=== PATIENT | female | born 2000 | race Two or more races ===

== ENCOUNTER 2025-01-25 17:35 | Emergency (ER) | payer OTHER, SELFPAY ==
[2025-01-25 17:58] VITALS: BP 141/83; PULSE 74; RESP 20; TEMP 37.4; O2SAT 97
--- NOTE | 2025-01-25 17:58 | XR_ITS ---
Examination: Pelvic ultrasound, transabdominal, complete Technique: Transabdominal ultrasound of the pelvis performed using grayscale imaging Date and time of exam: January 25, 2025 at 1913 hrs. Indications: Pelvic pain beginning one week ago, worse the last 3 days Findings: Uterus 6.8 cm endometrial stripe 2 mm No uterine mass or intrauterine gestation Multiple right ovarian cysts, arterial flow to the ovary, including 3.0 x 2.2 cm, 2.8 x 2.0 cm Left ovarian cyst 2.8 x 2.4 cm, arterial flow Impression: No uterine mass or intrauterine gestation Small ovarian cysts as above
--- NOTE | 2025-01-25 17:59 | PD.EDRME ---
Rapid Medical Screening Exam [facility] Arrival date/time: 01/25/25 17:35 24-year-old female with no known medical history presents to the emergency room with a chief complaint of right lower quadrant abdominal pain and tenderness. Patient states she missed her period last month but is unsure if she is or not. Patient denies any dysuria hematuria or vaginal bleeding. I have greeted and performed a focused initial assessment of this patient. A comprehensive ED assessment and evaluation of the patient, analysis of all test results, and completion of the medical decision making process will be conducted by additional ED providers. Chief Complaint: Abdominal Pain Vital signs: Vital Signs Temperature 99.4 F 01/25/25 17:58 Pulse Rate 74 01/25/25 17:58 Respiratory Rate 20 01/25/25 17:58 Blood Pressure 141/83 H 01/25/25 17:58 Pulse Oximetry (%) 97 01/25/25 17:58 Oxygen Delivery Method Room Air 01/25/25 17:58 Vital signs reviewed by provider: Yes
[2025-01-25 18:57] LABS: Basophils # (Auto) 0.1 Thou/mm3 (0.0-0.2); Basophils % (Auto) 0 % (0-2.5); Eosinophils # (Auto) 0.1 Thou/mm3 (0.0-0.5); Eosinophils % (Auto) 1 % (0-10); Hematocrit 42.6 % (36.0-46.0); Hemoglobin 13.9 g/dL (12.0-16.0); Immature Granulocytes % (Auto) 1 % (0-0); Immature Granulocytes Auto 0.06 Thou/mm3 (0.00-0.00); Lymphocytes # (Auto) 2.1 Thou/mm3 (1.0-4.8); Lymphocytes % (Auto) 17 % (10-50); Mean Corpuscular HGB Conc 32.6 g/dl (31.0-37.0); Mean Corpuscular Hemoglobin 28.7 pg (25.0-35.0); Mean Corpuscular Volume 88 fL (80-100); Monocytes # (Auto) 0.9 Thou/mm3 (0.0-0.8); Monocytes % (Auto) 7 % (0-12); Neutrophils # (Auto) 9.5 Thou/mm3 (1.8-7.7); Neutrophils % (Auto) 75 % (37-80); Nucleated Red Blood Cell % 0 /100 WBC (0); Platelet Count 296 Thou/mm3 (140-440); RDW Standard Deviation 41.1 fL (36.4-46.3); Red Blood Count 4.85 Miln/mm3 (4.00-5.20); White Blood Count 12.7 Thou/mm3 (3.6-11.0)
[2025-01-25 19:11] LABS: HCG,Qualitative Serum Negative
[2025-01-25 19:16] LABS: Alanine Aminotransferase 34 U/L (10-49); Albumin, Serum 4.8 gm/dL (3.5-5.0); Albumin/Globulin Ratio 1.7 (1.2-2.2); Alkaline Phosphatase 64 U/L (46-116); Anion Gap 10 (7-16); Aspartate Amino Transferase 38 U/L (0-34); BUN/Creatinine Ratio 16 Ratio (12-20); Beta HCG,Quantitative < 1 mIU/mL (<5.0); Blood Urea Nitrogen 11 mg/dL (9-23); Calcium 9.7 mg/dL (8.3-10.6); Calcium (Corrected) 9.7 mg/dL (8.5-10.1); Carbon Dioxide 27.7 mMol/L (20.0-31.0); Chloride 102 mMol/L (98-107); Creatinine (Component) 0.7 mg/dL (0.6-1.3); Globulin 2.9 gm/dL (2.3-3.5); Glucose 94 mg/dL (74-106); Osmolality,Calculated 278 (275-295); Potassium 4.2 mMol/L (3.4-5.1); Sodium 140 mMol/L (136-145); Total Protein 7.7 gm/dL (5.7-8.2); eGFR > 60 See Note
[2025-01-25 19:57] VITALS: BP 167/96; PULSE 73; RESP 18; TEMP 37.1; O2SAT 96
[2025-01-25 20:35] LABS: Collection Type, Urine Clean Catch
[2025-01-25 20:55] LABS: Bacteria,Urine Rare; Bilirubin,Urine Negative (Negative); Blood,Urine Negative (Negative); Clarity,Urine Clear (Clear/Hazy); Color,Urine Lt-Yellow (Lt Yel-Yel); Culture Indicated,Urine Not Indicated; Glucose, Urine Negative (Negative); Ketones,Urine Negative (Negative); Leukocyte Esterase,Urine Negative (Negative); Nitrite,Urine Negative (Negative); PH,Urine 7.5 (5.0-7.0); Protein,Urine Negative (Neg - Trace); RBC,Urine 2 /hpf (0-3); Specific Gravity,Urine 1.019 (1.001-1.035); Squamous Epithelial Cell,Urine 2 /hpf (0-5); Urobilinogen,Urine Negative mg/dL (0.0-1.0); WBC,Urine 1 /hpf (0-5)
--- NOTE | 2025-01-25 21:54 | PD.EDBACK ---
ED Back Injury Pain RME/HPI General Chief Complaint: Abdominal Pain Stated Complaint: LOWER ABD/BACK/R) LEG PAIN X 3-4 DAYS, POSS PREG Time Seen by Provider: 01/25/25 21:52 Arrival date/time: 01/25/25 17:35 24 year old female present to emergency room with c/o of right pelvic pain for 2 weeks. worsen the past 3-4 days. pt report possible being . LOCATION: pelvic SEVERITY: Symptoms are described as being severe with limitations on activities of daily living QUALITY: Symptoms are described as being cramping CONTEXT: The patient is unable to identify any inciting events. DURATION/TIMING: The symptoms started approximately 14 days ago and have been waxing/waning but always present without ever completely resolving. ASSOCIATED SYMPTOMS: The patient is unable to identify any other associated symptoms. MODIFYING FACTORS: The patient is unable to identify any alleviating or aggravating symptoms. PERTINENT ROS: no fevers, no anorexia, no nausea or vomiting, no diarrhea, no ripping or tearing sensations, no syncope or presyncopal symptoms, denies trauma, denies genital pain denies UTI, denies flank/vaginal bleeding/discharge/odor REVIEW OF SYSTEMS: See History of Present Illness - with the exception of those mentioned in the history of present illness, all other systems reviewed and reported as negative GENERAL: In general the patient is awake, interactive, in an emergency department gurney. HEAD/EYES/EARS/NOSE/THROAT: normo-cephalic, atraumatic, mucus membranes are moist, anicteric, palpebral conjunctiva is pink, trachea is midline. CARDIOVASCULAR: regular rate and regular rhythm, no murmurs, heart sounds are not distant, strong pulses in all four extremities that are equal and symmetric bilateral upper and lower extremities, normal capillary refill. CHEST/PULMONARY: normal chest rise and fall, good air movement, clear to auscultation bilaterally, normal inspiratory to expiratory ratios without evidence of respiratory distress. NECK: No midline/Paraspinal tenderness, no step off ROM/Strenght intact No Kernig and bruzinski sign. No trauma ABDOMEN: soft, right pelvic tenderness, no cva tenderness no masses appreciated BACK: normal range of motion without pain. NEUROLOGICAL: cranio-facial features are symmetric, moves all four extremities equally without obvious limitations or weakness. EXTREMITY: no tenderness to palpation over the long bones or large joints of the bilateral upper and lower extremities, no joint swelling, no joint erythema, no signs of trauma, no unilateral leg swelling and no peripheral edema. SKIN: warm, dry, well-perfused, no jaundice, no rash, no telangiectasias or petechia. PSYCH: calm, cooperative, no evidence of psychosis or agitation RME / HPI RME / HPI Narrative: 01/25/25 17:35 24-year-old female with no known medical history presents to the emergency room with a chief complaint of right lower quadrant abdominal pain and tenderness. Patient states she missed her period last month but is unsure if she is or not. Patient denies any dysuria hematuria or vaginal bleeding. I have greeted and performed a focused initial assessment of this patient. A comprehensive ED assessment and evaluation of the patient, analysis of all test results, and completion of the medical decision making process will be conducted by additional ED providers. Related Data Previous Rx's ?Medication ?Instructions ?Recorded naproxen 500 mg tablet 500 mg PO BID PRN pain #30 tabs 01/25/25 Allergies Allergy/AdvReac Type Severity Reaction Status Date / Time No Known Allergies Allergy Verified 01/25/25 17:41 Course Course Course Narrative: cbc,cmp, hcg, UA, US pelvic toradol 30mg IM for pain Quality Measures none Orders Category Date Time Status US pelvic complete Stat Exams 01/25/25 17:58 Completed Beta HCG,Quantitative Stat Lab 01/25/25 18:17 Completed CBC Stat Lab 01/25/25 18:17 Completed CMP [Comprehensive Metabolic Panel] Stat Lab 01/25/25 18:17 Completed HCG,Qualitative Serum Stat Lab 01/25/25 18:17 Completed UA, C/S IF [Urinalysis, C/S if Indicated] Stat Lab 01/25/25 20:12 Completed Ketorolac Inj [Toradol Inj] Med 01/25/25 21:52 Once 30 mg IM X1 ONE Reevaluation(s) Reevaluation #1: pain has improved with toradol 30mg IM Vital Signs Vital signs: Vital Signs Temperature 99.4 F 01/25/25 17:58 Pulse Rate 74 01/25/25 17:58 Respiratory Rate 20 01/25/25 17:58 Blood Pressure 141/83 H 01/25/25 17:58 Pulse Oximetry (%) 97 01/25/25 17:58 Oxygen Delivery Method Room Air 01/25/25 17:58 Back Pain / Injury MDM Narrative MDM Narrative:: Patient?s symptoms not typical for emergent causes of abdominal pain such as, but not limited to, appendicitis, abdominal aortic aneurysm, surgical biliary disease, pancreatitis, SBO, mesenteric ischemia, serious intra-abdominal bacterial illness. Presentation also not typical of gynecologic emergencies such as?TOA, Ovarian Torsion, PID. Not Ectopic. Doubt atypical ACS. Pt tolerating PO. Disposition: Patient will be discharged with strict return precautions and follow up with primary MD within 12-24 hours for further evaluation. Patient understands that this still may have an early presentation of an emergent medical condition such as appendicitis that will require a recheck. Patient data External records reviewed:: None Clinical information provided by:: patient Social determinants that could affect healthcare access:: none Patient has the following chronic illnesses:: n/a How is presenting disease/condition affected by chronic disease/condition?: no chronic disease Evaluation data The following diagnostics were reviewed and interpreted by me:: lab results and radiology exam(s) Lab and/or radiology exams considered but not ordered:: n/a Interpretation Summary: US: Uterus 6.8 cm endometrial stripe 2 mm No uterine mass or intrauterine gestation Multiple right ovarian cysts, arterial flow to the ovary, including 3.0 x 2.2 cm, 2.8 x 2.0 cm Left ovarian cyst 2.8 x 2.4 cm, arterial flow Impression: No uterine mass or intrauterine gestation Small ovarian cysts as above Cbc/cmp no acute findings hcg; negative urine no sign of infection Medications / Prescriptions Medications or Prescriptions considered but not ordered:: n/a Medication administrations:: Medication Administration History Ketorolac Tromethamine (Ketorolac Inj 60 Mg/2 Ml Vial) 30 mg IM X1 ONE Stop: 01/25/25 21:53 na Consultations Consultation(s) initiated? (list below): No Diagnosis Most likely diagnosis given after review of the tests above:: ovarian cyst Admission Indicated Admission indicated?: not indicated Admission Request Was there a request for admission?: No Disposition Plan Disposition Plan: Discharge Discharge Attestation Discharge Attestation: The patient and all family members were given an opportunity to ask questions and understood the discharge instructions. Discharge instructions specifically effects, indications for sooner follow up or return to the emergency department, and the expected course of current diagnosis. Patient condition: Stable Discharge Plan Plan Patient Disposition: HOME (Self Care) Health Concerns: Follow with PMD as directed Take tylenol or motrin as need Return to ED if sx worsen Prescriptions/Referrals Prescriptions/Med Rec: New naproxen 500 mg tablet 500 mg PO BID PRN (Reason: pain) Qty: 30 0RF Referrals: No Primary/Family,Physician [Primary Care Provider] - In 1 week Problem List Clinical Impression: Ovarian cyst Patient/Caregiver Discharge Instructions Education Materials: Treatment for Ovarian Cysts, ED Ovarian Cyst Print Language: Citizen Of [place] Stand Alone Forms: Marika Award Info., Patient Portal Info Letter
== END 2025-01-25 22:05 | disposition home or self-care (01) ==
PROVIDERS: Nurse Practitioner Family; Emergency Provider Emergency Medicine
DX: N83.202 Unspecified ovarian cyst, left side (principal); N83.201 Unspecified ovarian cyst, right side
CPT/HCPCS: 36415; 76856; 80053; 81001; 84702; 84703; 85025; 99284